=== PATIENT | female | born 1960 | race Caucasian/White ===

== ENCOUNTER → 2024-10-20 | Outpatient (CLI) | payer BC, SELFPAY ==
--- NOTE | 2024-10-20 10:30 | XR_ITS ---
Examination: Breast ultrasound, unilateral, left complete Date and time of exam: October 20, 2024 1031 hours INDICATIONS: Left breast pain beginning 6 months ago, patient states In the left axilla 6 months, ultrasound April 16, 2024 1:00 nodule hyperechoic 19 mm Technique: Real-time medley scale ultrasonographic imaging performed left breast including all 4 quadrants as well as nipple retroareolar and axillary region. Findings: 1:00 oval mass hyperechoic 19 x 12 x 17 mm Left axillary lymph node 14 mm IMPRESSION: BI-RADS Category 3: Probably benign findings Recommend 1 additional 6 month left breast sonogram follow-up to document stability of probably benign lipoma in the 1:00 position left breast
--- NOTE | 2024-10-20 11:00 | XR_ITS ---
Examination: Diagnostic digital mammography, unilateral, left Computer aided detection 3-D breast Tomosynthesis, unilateral Date and time of exam: October 20, 2024 1048 hours INDICATIONS: Mammogram April 16, 2024 16 mm circumscribed nodule upper outer left breast Technique: Nonmagnified MLO, CC views of the left breast have been obtained, reconstructed from 3-D Tomosynthesis images. R2 computer aided detection program utilized for evaluation of suspicious masses and/or abnormal calcifications. 3-D Tomosynthesis images obtained. Findings: Scattered areas of fibroglandular density 2 focal asymmetries upper outer left breast, one corresponding to 1:00 nodule described on left breast sonogram today, lobular margins Impression: BI-RADS category 3: Probably benign findings One additional 6 month left mammogram follow-up strongly recommended to document stability of focal asymmetries described above
== END | disposition home or self-care (01) ==
LOC: CDIM 10:15
PROVIDERS: PCP Family Medicine; Referring Provider Family Medicine; Visit Provider Family Medicine
DX: R92.332 Mammographic heterogeneous density, left breast (principal); N64.89 Other specified disorders of breast; N63.21 Unspecified lump in the left breast, upper outer quadrant
CPT/HCPCS: 76641; 77061; 77065; G0279

== ENCOUNTER → 2024-10-21 | Outpatient (CLI) | payer BC, SELFPAY ==
--- NOTE | 2024-10-21 15:30 | XR_ITS ---
Examination: Thyroid sonography complete TECHNIQUE: By resolution grayscale sonographic images thyroid lobes are carful analysis Exam date and time: October 21, 2024 1547 hours INDICATIONS: Bilateral thyroid nodules on ultrasound thyroid December 26, 2021, mid to upper pole right thyroid nodule 12 mm lower pole left thyroid nodule 6 mm FINDINGS: Right thyroid 3.6 x 1.3 x 1.4 cm Vascular midpole right thyroid nodule 1.3 x 0.8 x 1.0 cm Left thyroid 3.6 x 1.1 x 0.9 cm Lower pole nodule 3 x 2 x 2 mm IMPRESSION: Bilateral thyroid nodules as above
[2024-10-21 16:11] LABS: Misc Send Out* See Sep Rpt
[2024-10-21 16:31] LABS: Basophils # (Auto) 0.1 Thou/mm3 (0.0-0.2); Basophils % (Auto) 1 % (0-2.5); Eosinophils # (Auto) 0.2 Thou/mm3 (0.0-0.5); Eosinophils % (Auto) 2 % (0-10); Hematocrit 45.3 % (36.0-46.0); Hemoglobin 15.3 g/dL (12.0-16.0); Immature Granulocytes % (Auto) 1 % (0-0); Immature Granulocytes Auto 0.06 Thou/mm3 (0.00-0.00); Lymphocytes # (Auto) 1.9 Thou/mm3 (1.0-4.8); Lymphocytes % (Auto) 21 % (10-50); Mean Corpuscular HGB Conc 33.8 g/dl (31.0-37.0); Mean Corpuscular Hemoglobin 29.5 pg (25.0-35.0); Mean Corpuscular Volume 88 fL (80-100); Monocytes # (Auto) 0.7 Thou/mm3 (0.0-0.8); Monocytes % (Auto) 8 % (0-12); Neutrophils % (Auto) 67 % (37-80); Nucleated Red Blood Cell % 0 /100 WBC (0); Platelet Count 246 Thou/mm3 (140-440); RDW Standard Deviation 42.7 fL (36.4-46.3); Red Blood Count 5.18 Miln/mm3 (4.00-5.20)
[2024-10-21 16:59] LABS: T4 (Thyroxine) 8.7 mcg/dL (4.5-10.9)
[2024-10-21 17:00] LABS: Thyroid Stimulating Hormone 3.88 uIU/mL (0.55-4.78)
== END | disposition home or self-care (01) ==
LOC: CDIM 15:24 → COPL 16:00
PROVIDERS: PCP Family Medicine; Referring Provider Family Medicine; Visit Provider Radiology Diagnostic Radiology
DX: E04.1 Nontoxic single thyroid nodule (principal)
CPT/HCPCS: 36415; 76536; 84436; 84443; 85025

== ENCOUNTER → 2024-11-04 | Outpatient (CLI) | payer BC, SELFPAY ==
--- NOTE | 2024-11-04 09:11 | XR_ITS ---
Examination: Esophagram standard Fluoroscopy Upright PA chest single view Upright soft tissue lateral neck single view 24 spot fluoroscopic films of the esophagus Exam date and time: November 04, 2024 0937 hours Massive reflux heartburn difficulty swallowing 1 year TECHNIQUE AND FINDINGS: Upright PA chest mild prominence left ventricle, linear scarring in the right midlung Prominent osteopenia Adequate alignment cervical vertebral bodies Normal epiglottis Primary peristaltic esophageal waves noted Moderate continuous gastroesophageal reflux Fluoroscopy 0.21 minutes 24 spot fluoroscopic films Stricture at the gastroesophageal junction approximate 60% Small sliding esophageal hernia IMPRESSION: Moderate continuous gastroesophageal reflux 60% stricture at the gastroesophageal junction
== END | disposition home or self-care (01) ==
LOC: CDIM 09:04
PROVIDERS: PCP Family Medicine; Referring Provider Family Medicine; Visit Provider Family Medicine
DX: K21.9 Gastro-esophageal reflux disease without esophagitis (principal); K22.2 Esophageal obstruction
CPT/HCPCS: 74220

== ENCOUNTER → 2024-11-26 | Outpatient (CLI) | payer BC, SELFPAY ==
[2024-11-26 16:04] LABS: Thyroid Stimulating Hormone 6.54 uIU/mL (0.55-4.78)
[2024-12-02 06:36] LABS: ANA Pattern NUCLEAR, HOMOGENEOUS; ANA Pattern NUCLEAR, SPECKLED; ANA Screen, IFA POSITIVE (NEGATIVE)
== END | disposition home or self-care (01) ==
LOC: COPL 14:42
PROVIDERS: PCP Family Medicine; Referring Provider Specialist; Visit Provider Specialist
DX: Z01.89 Encounter for other specified special examinations (principal)
CPT/HCPCS: 36415; 84443; 86038

== ENCOUNTER 2024-12-01 08:05 | Day surgery (SDC) | payer BC, SELFPAY ==
--- NOTE | 2024-11-28 06:00 | EKG_ITS ---
[facility] Test Date: 2024-11-28 Pat Name: VARSHA GONZALEZ Department: Room: - Gender: Female Institute Scientist: ABHINAV : 1960 Requested By: Rajan Vieira Order Number: [id number] Reading MD: Rajan Vieira Measurements Intervals [place] Rate: 50 P: 47 [place]: 203 QRS: -17 QRSD: 147 T: 10 QT: 483 QTc: 442 Interpretive Statements SINUS BRADYCARDIA RIGHT BUNDLE BRANCH BLOCK LEFT VENTRICULAR HYPERTROPHY AND ST-T CHANGE POSSIBLE ANTERIOR MYOCARDIAL INFARCTION , OF INDETERMINATE AGE Compared to ECG 03/14/2020 12:08:48 Right bundle-branch block now present Left ventricular hypertrophy now present ST (T wave) deviation now present Myocardial infarct finding now present Sinus rhythm no longer present /store/S0/[id number]/ecg/[id number].pdf
[2024-11-28 13:29] LABS: INR 0.9 (0.9-1.3); Partial Thromboplastin Time 27.9 Seconds (22.0-36.0); Prothrombin Time 10.3 Seconds (9.0-12.2)
[2024-11-28 13:32] LABS: Alanine Aminotransferase 13 U/L (10-49); Albumin, Serum 4.6 gm/dL (3.4-4.8); Albumin/Globulin Ratio 1.8 (1.2-2.2); Alkaline Phosphatase 104 U/L (46-116); Anion Gap 5 (7-16); Aspartate Amino Transferase 16 U/L (0-34); BUN/Creatinine Ratio 8 Ratio (12-20); Bilirubin,Total 0.4 mg/dL (0.3-1.2); Blood Urea Nitrogen 9 mg/dL (9-23); Calcium 9.3 mg/dL (8.3-10.6); Calcium (Corrected) 9.3 mg/dL (8.5-10.1); Carbon Dioxide 29.6 mMol/L (20.0-31.0); Chloride 100 mMol/L (98-107); Creatinine (Component) 1.1 mg/dL (0.6-1.3); Globulin 2.6 gm/dL (2.3-3.5); Glucose 114 mg/dL (74-106); Osmolality,Calculated 269 (275-295); Potassium 3.3 mMol/L (3.4-5.1); Sodium 135 mMol/L (136-145); Total Protein 7.2 gm/dL (5.7-8.2); eGFR 57 See Note
[2024-12-01] VITALS (7 sets, daily range): BP systolic 109–161; BP diastolic 64–89; PULSE 50–69; RESP 13–21; TEMP 36.7–36.8; O2SAT 89–97; BMI 39.3
[2024-12-01] MEDS: SODIUM CHLORIDE 0.9% 500 ML 500 ML 20 ML IV (09:34)
[2024-12-01] MEDS: ALBUTEROL/IPRATROPIUM (Duoneb) RT SOL 3 ML NEBU INH (10:10)
[2024-12-01] MEDS: DEXAMETHASONE SOD PHOS INJ 10 MG/ML VIAL 8 MG IV (10:52)
--- NOTE | 2024-12-01 13:16 | SUR.PHASEII ---
1000: Pt received for recovery. Report from Tami RN and Sadaf [employer] student. Pt in high fowlers coughing intermittently. 02 sats low 89%. Mask in place with 02 @ 6L/min. Other VS stable. Denies pain. 1010: Pt lung sounds continue with coarse rhonchi and mild wheezing. Albuterol nebulizer tx ordered and is being administered at this time. 1025: Pt breathing less labored. Stated she felt much better. Continues with unproductive intermittent cough. 1045: Pt breathing normal for pt. Continues to have mild wheeze left upper chest on inspiration. VS stable. Denies pain. 1052: Received order for Decadron 8mg which was given at this time. Pt cough has subsided. Mild wheeze left upper chest on inspiration remains. 1105: Pt tolerating po fluids with no difficulty swallowing and no n/v. 1127: Pt fully awake, oriented x3. Pt assisted to restroom. Ambulation steady. Pt and stated understanding of discharge instructions. Pt discharged from [facility] in stable condition.
== END 2024-12-01 11:27 | disposition home or self-care (01) ==
PROVIDERS: PCP Family Medicine; Referring Provider Specialist; Visit Provider Specialist
PROC: (CPT 43239; principal; 2024-12-01 12:45)
DX: K29.70 Gastritis, unspecified, without bleeding (principal); K44.9 Diaphragmatic hernia without obstruction or gangrene; K21.00 Gastro-esophageal reflux disease with esophagitis, without bleeding; K22.2 Esophageal obstruction; K31.89 Other diseases of stomach and duodenum; K29.50 Unspecified chronic gastritis without bleeding
CPT/HCPCS: 43248; 43239; 36415; 80053; 85610; 85730; 93005; A4649; A9270; C1769; J1100; J7040

== ENCOUNTER 2024-12-07 16:35 | Emergency (ER) | payer BC, SELFPAY ==
[2024-12-07 16:56] VITALS: BP 169/101; PULSE 62; RESP 24; TEMP 36.6; O2SAT 96
--- NOTE | 2024-12-07 17:02 | XR_ITS ---
Examination: CT abdomen and pelvis without contrast. Coronal 3-D reconstructions. Sagittal 2-D reconstructions. Date and time of exam:December 07, 2024 1710 hrs. Comparison September 03, 2020 Indications: Sudden onset severe left-sided abdominal pain with nausea today CTDI: vol (mGy): 17.3 DLP: (mGycm): 920 Technique: Axial images of the abdomen have been obtained, 3 mm slice thickness Intravenous contrast material has not been administered. Low dose protocols were performed. One or more of the following dose reduction techniques were used; automated exposure control, adjustment of the mA and/or KV according to patient size, use of iterative reconstruction technique. Findings: Liver is mildly irregular in contour Gallbladder is distended with 1 mm gallstone No pancreatic or adrenal mass Significant left renal parenchymal scar formation with 10 mm upper pole left renal calculus No hydronephrosis Fluid distended small bowel loops in the left abdomen for instance axial image 93 Aortic calcification 20 mm fat-containing umbilical hernia No pericecal inflammatory change Colonic diverticulosis, no diverticulitis Contracted urinary bladder Absent uterus No pelvic mass Moderate osteopenia with grade 1 anterolisthesis L5 on S1 with moderate disc narrowing L5-S1 Impression: Suspect primary hepatocellular disease Distended gallbladder with gallstones, recommend gallbladder sonography follow-up Significant left renal parenchymal scar formation, 10 mm upper pole left renal calculus Fluid distended small bowel loops in the left abdomen, consider ileus, enteritis, recommend 3 abdominal series follow-up if early small bowel obstruction is a clinical consideration
--- NOTE | 2024-12-07 17:04 | PD.EDRME ---
Rapid Medical Screening Exam RME Arrival date/time: 12/07/24 16:35 64-year-old female presents to the emergency department today complaints of lower abdominal pain acute Chief Complaint: Abdominal Pain Time Seen by Provider: 12/07/24 16:44
[2024-12-07 17:40] LABS: Basophils # (Auto) 0.1 Thou/mm3 (0.0-0.2); Basophils % (Auto) 0 % (0-2.5); Eosinophils # (Auto) 0.2 Thou/mm3 (0.0-0.5); Eosinophils % (Auto) 2 % (0-10); Hematocrit 44.3 % (36.0-46.0); Hemoglobin 15.2 g/dL (12.0-16.0); Immature Granulocytes % (Auto) 1 % (0-0); Immature Granulocytes Auto 0.07 Thou/mm3 (0.00-0.00); Lymphocytes # (Auto) 2.7 Thou/mm3 (1.0-4.8); Lymphocytes % (Auto) 24 % (10-50); Mean Corpuscular HGB Conc 34.3 g/dl (31.0-37.0); Mean Corpuscular Hemoglobin 29.4 pg (25.0-35.0); Mean Corpuscular Volume 86 fL (80-100); Monocytes # (Auto) 0.9 Thou/mm3 (0.0-0.8); Monocytes % (Auto) 8 % (0-12); Neutrophils # (Auto) 7.5 Thou/mm3 (1.8-7.7); Neutrophils % (Auto) 66 % (37-80); Nucleated Red Blood Cell % 0 /100 WBC (0); Platelet Count 268 Thou/mm3 (140-440); RDW Standard Deviation 41.1 fL (36.4-46.3); Red Blood Count 5.17 Miln/mm3 (4.00-5.20); White Blood Count 11.4 Thou/mm3 (3.6-11.0)
[2024-12-07 17:59] LABS: Collection Type, Urine Clean Catch
[2024-12-07 17:59] LABS: Alanine Aminotransferase 16 U/L (10-49); Albumin, Serum 4.5 gm/dL (3.4-4.8); Albumin/Globulin Ratio 1.6 (1.2-2.2); Alkaline Phosphatase 97 U/L (46-116); Anion Gap 8 (7-16); Aspartate Amino Transferase 19 U/L (0-34); BUN/Creatinine Ratio 5 Ratio (12-20); Bilirubin,Total 0.6 mg/dL (0.3-1.2); Blood Urea Nitrogen 6 mg/dL (9-23); Calcium 9.6 mg/dL (8.3-10.6); Calcium (Corrected) 9.6 mg/dL (8.5-10.1); Carbon Dioxide 28.2 mMol/L (20.0-31.0); Chloride 101 mMol/L (98-107); Creatinine (Component) 1.2 mg/dL (0.6-1.3); Globulin 2.8 gm/dL (2.3-3.5); Glucose 100 mg/dL (74-106); Lipase 26 U/L (12-53); Osmolality,Calculated 271 (275-295); Sodium 137 mMol/L (136-145); Total Protein 7.3 gm/dL (5.7-8.2); eGFR 51 See Note
[2024-12-07 18:05] LABS: Bilirubin,Urine Negative (Negative); Blood,Urine 2+ (Negative); Budding Yeast,Urine Present; Clarity,Urine Turbid (Clear/Hazy); Color,Urine Yellow (Lt Yel-Yel); Culture Indicated,Urine Contaminated; Glucose, Urine Negative (Negative); Hyaline Casts,Urine < 1 /hpf (0-1); Ketones,Urine Negative (Negative); Leukocyte Esterase,Urine Positive (Negative); Nitrite,Urine Negative (Negative); Protein,Urine 1+ (Neg - Trace); RBC,Urine 9 /hpf (0-3); Specific Gravity,Urine 1.013 (1.001-1.035); Squamous Epithelial Cell,Urine 12 /hpf (0-5); WBC,Urine 163 /hpf (0-5)
[2024-12-07 19:03] LABS: HCG Qualitative,Urine Negative
[2024-12-07 19:22] VITALS: BP 113/96; PULSE 53; RESP 17; TEMP 36.6; O2SAT 96
[2024-12-07 19:36] VITALS: BMI 38.9
[2024-12-07] MEDS: HYDROcodone/APAP 5/325 TABLET 1 TAB PO ×2 (19:46→21:37)
[2024-12-07] MEDS: DIAZEPAM 5 MG TABLET 10 MG PO ×2 (19:46→21:37)
--- NOTE | 2024-12-07 20:14 | XR_ITS ---
Examination: Abdomen sonogram, Limited Date and time of exam: December 07, 2024 202 hrs. Indications: Distended gallbladder on CT examination today, upper abdominal pain this week Technique: Real-time medley scale transabdominal sonographic images of the upper abdomen obtained. Findings: Gallbladder sludge 7 mm gallstone Normal gallbladder wall 0.2 cm Common bile duct 0.3 cm Pancreatic head 2.8 cm Liver 14. 8 cm mildly irregular contour Normal hepatopedal portal venous flow Patent IVC Impression: Cholelithiasis, negative for cholecystitis Normal common bile duct
--- NOTE | 2024-12-07 22:08 | EDNOTE_ITS ---
ED Abdominal Pain RME/HPI General Chief Complaint: Abdominal Pain Stated complaint: SUDDEN ONSET SEVERE LEFT SIDED ABD PAIN Time seen by provider: 12/07/24 16:44 Arrival date/time: 12/07/24 16:35 Source: patient Mode of arrival: ambulatory Limitations: no limitations RME / HPI RME / HPI narrative: 12/07/24 16:35 64-year-old female presents to the emergency department today complaints of lower abdominal pain acute. Dr. Lee?s Main ED Evaluation: An 89-year-old female was brought to the emergency department via ambulance with a chief complaint of lumbar spine pain localized to the L2-L3 region, radiating around the right epigastric area. She has a history of shingles and denies any bowel or bladder changes. The patient reports having a muscle nerve stimulator placed from T8 to L1, which she turned off when the pain began; however, the pain has persisted. She denies urinary changes, diarrhea, or constipation. The p ain is exacerbated by movement or turning and is associated with significant muscle tenderness. She denies any other associated symptoms or medical complaints. Related Data Home Medications ?Medication ?Instructions ?Recorded ?Confirmed pregabalin 200 mg capsule (Lyrica) 100 mg PO TID FIBROMYALGIA #0 caps 12/29/13 12/01/24 alprazolam 1 mg tablet 1 mg PO TID 12/01/24 12/01/24 amitriptyline 25 mg tablet 25 mg PO HS 12/01/24 12/01/24 amlodipine 10 mg tablet 10 mg PO QDAY 12/01/24 12/01/24 bupropion HCl 100 mg tablet,12 hr 100 mg PO BID 12/01/24 12/01/24 sustained-release celecoxib 200 mg capsule 200 mg PO BID 12/01/24 12/01/24 levothyroxine 25 mcg tablet 25 mcg PO QDAY 12/01/24 12/01/24 (Synthroid) lisinopril 20 mg tablet 20 mg PO QDAY 12/01/24 12/01/24 Previous Rx's ?Medication ?Instructions ?Recorded pantoprazole 40 mg tablet,delayed 40 mg PO QDAY #14 tabs 12/14/21 release (Protonix) diazepam 10 mg tablet 10 mg PO BID PRN muscle spasm #6 12/07/24 tabs Allergies Allergy/AdvReac Type Severity Reaction Status Date / Time Penicillins Allergy Severe Swelling Verified 12/07/24 16:38 of Lip/Tongue/Throat sulfur dioxide Allergy Unknown Verified 12/07/24 16:38 morphine AdvReac Severe Nausea Verified 12/07/24 16:38 codeine AdvReac Intermediate Nausea Verified 12/07/24 16:38 Review of Systems Review of Systems Systems Reviewed: All systems reviewed, normal except as documented Past Medical History Past Medical History NEUROLOGIC: Positive Neurological Disorders, Cerebrovascular Accident (STATES HAD SEVERAL MINI STROKES IN THE PAST) and Migraine; Negative Seizures CARDIAC: Positive Cardiac Disorders, Cardiac Arrhythmia, Atrial Fibrillation, Heart Murmur and Hypertension; Negative Myocardial Infarction, Angina, Coronary Artery Disease, Atherosclerotic Heart Disease, Peripheral Vascular Disease, Hypercholesterolemia, Aneurysm, Congestive Heart Failure, Congenital Heart Disease, Valvular Heart Disease, Rheumatic Fever, Cardiomyopathy, Edema, Pericarditis, Cellulitis, Deep Vein Thrombosis, Hypotension or Varicose Veins RESPIRATORY: Positive Chronic Obstructive Pulmonary Disease (COPD) and Asthma GASTROINTESTINAL: Positive Gastrointestinal Disorders, Diverticulitis and Gastroesophageal Reflux Disease; Negative Ulcer GENITOURINARY: Negative Genitourinary Disorders or Renal Disease MUSCULOSKELETAL: Positive Musculoskeletal Disorders, Arthritis, Degenerative Disk Disease, Fibromyalgia and Degenerative Joint Disease ENDOCRINE: Positive Endocrine Disorders, Hyperthyroidism (IN THE PAST) and Hypothyroidism; Negative Diabetes Mellitus Type 1, Diabetes Mellitus Type 2, Robel's Syndrome, Donnie's Disease or Adrenal Disease HEMATOLOGIC: Negative Blood Disorders or Sickle Cell Disease PSYCHO/SOCIAL: Positive Depression and Anxiety OTHER HISTORY: Positive Falls; Negative Hospitalization, Autoimmune Disease, Blood Transfusions, Blood Transfusion Reaction, Anesthesia Reactions, MRSA or Cancer Family History FAMILY HISTORY: Positive Family Cardiac Disorders and Family Cancer; Negative Family Neurologic Problems, Family Psychiatric Problems, Family Respiratory Disorders, Family Gastrointestinal Problems, Family Surgery or Family Anesthesia Reaction Surgical History SURGICAL: Positive Tonsillectomy, Abdominal Surgery, Gastric Bypass Surgery (LAP BAND- REMOVED), Joint Replacement (RIGHT SHOULDER, RIGHT KNEE) and Hysterectomy; Negative Pacemaker, Bowel Surgery or Neurologic Surgery Social History SMOKING STATUS: Current every day smoker SECOND HAND EXPOSURE: Yes (spouse) SUBSTANCE USE: marijuana (occasional) ED Exam Narrative Physical exam: GENERAL APPEARANCE: AxOx4, generally well-appearing, no acute distress. HEENT: NC, AT. MMM. EOMI, clear conjunctiva, oropharynx clear. NECK: Supple without lymphadenopathy. No stiffness or restricted ROM. HEART: Normal rate and regular rhythm, normal S1/S1, no m/r/g LUNGS: CTAB, moving air well. No crackles or wheezes are heard. ABDOMEN: Soft, nontender, nondistended with good bowel sounds heard. BACK: Significant muscle tenderness, no obvious deformity. EXTREMITIES: Without cyanosis, clubbing or edema. MUSCULOSKELETAL: FROM of all major joints, no chest tenderness NEUROLOGICAL: Grossly nonfocal. Alert and oriented, moving all 4 extremities. CN not formally tested but appear grossly intact. Observed to ambulate with normal gait. Skin: Warm and dry without any gerri General Limitations: Present no limitations Course Quality Measures none Orders Category Date Time Status CT abdomen pelvis wo con Stat Exams 12/07/24 17:02 Completed US gall bladder Stat Exams 12/07/24 20:14 Completed CBC Stat Lab 12/07/24 17:26 Completed Comprehensive Metabolic Panel Stat Lab 12/07/24 17:26 Completed HCG Qualitative,Urine Stat Lab 12/07/24 17:40 Completed Lipase Stat Lab 12/07/24 17:26 Completed UA, C/S IF [Urinalysis, C/S if Indicated] Stat Lab 12/07/24 17:40 Completed Diazepam [Valium] Med 12/07/24 17:02 Discontinued 10 mg PO X1 ONE Diazepam [Valium] Med 12/07/24 21:15 Discontinued 10 mg PO X1 ONE HYDROcodone*/APAP 5/325 [[place] 5/325] Med 12/07/24 17:04 Discontinued 1 tab PO X1 ONE HYDROcodone*/APAP 5/325 [[place] 5/325] Med 12/07/24 21:15 Discontinued 1 tab PO X1 ONE Vital Signs Vital signs: Vital Signs Temperature 97.8 F 12/07/24 16:56 Pulse Rate 62 12/07/24 16:56 Respiratory Rate 24 H 12/07/24 16:56 Blood Pressure 169/101 H 12/07/24 16:56 Pulse Oximetry (%) 96 12/07/24 16:56 Oxygen Delivery Method Room Air 12/07/24 16:56 Abdominal Pain MDM MDM Narrative MDM Narrative:: Scribe Attestation: I, Paige Manuel am scribing for and in the presence of Dr. Lee. Provider Notation: Although this document has been carefully reviewed, there may still be some phonetic and other typographical errors. These errors are purely grammatical due to imperfections in the software program and should not be const rued in any way to compromise the substance of the patient's medical care during this visit. Patient data External records reviewed:: [facility] previous records Clinical information provided by:: patient Social determinants that could affect healthcare access:: none Patient has the following chronic illnesses:: See PMH How is presenting disease/condition affected by chronic disease/condition?: uneffected by Evaluation data The following diagnostics were reviewed and interpreted by me:: lab results and radiology exam(s) Lab and/or radiology exams considered but not ordered:: n/a Interpretation Summary: Examination: CT abdomen and pelvis without contrast. Date and time of exam:December 07, 2024 1710 hrs. Comparison September 03, 2020 Indications: Sudden onset severe left-sided abdominal pain with nausea today Findings: Liver is mildly irregular in contour Gallbladder is distended with 1 mm gallstone No pancreatic or adrenal mass Significant left renal parenchymal scar formation with 10 mm upper pole left renal calculus No hydronephrosis Fluid distended small bowel loops in the left abdomen for instance axial image 93 Aortic calcification 20 mm fat-containing umbilical hernia No pericecal inflammatory change Colonic diverticulosis, no diverticulitis Contracted urinary bladder Absent uterus No pelvic mass Moderate osteopenia with grade 1 anterolisthesis L5 on S1 with moderate disc narrowing L5-S1 Impression: Suspect primary hepatocellular disease Distended gallbladder with gallstones, recommend gallbladder sonography follow-up Significant left renal parenchymal scar formation, 10 mm upper pole left renal calculus Fluid distended small bowel loops in the left abdomen, consider ileus, enteritis, recommend 3 abdominal series follow-up if early small bowel obstruction is a clinical consideration Dictated By: Bismark Lobo MD Examination: Abdomen sonogram, Limited Date and time of exam: December 07, 2024 2026 hrs. Indications: Distended gallbladder on CT examination today, upper abdominal pain this week Findings: Gallbladder sludge 7 mm gallstone Normal gallbladder wall 0.2 cm Common bile duct 0.3 cm Pancreatic head 2.8 cm Liver 14. 8 cm mildly irregular contour Normal hepatopedal portal venous flow Patent IVC Impression: Cholelithiasis, negative for cholecystitis Normal common bile duct Dictated By: Bismark Lobo MD Medications / Prescriptions Medications or Prescriptions considered but not ordered:: n/a Medication administrations:: Medication Administration History Discontinued Medications Hydrocodone Bitart/Acetaminophen (Hydrocodone/Apap 5/325 Tablet) 1 tab PO X1 ONE Stop: 12/07/24 17:05 Last Admin: 12/07/24 19:46 Dose: 1 tab Documented By: EF Hydrocodone Bitart/Acetaminophen (Hydrocodone/Apap 5/325 Tablet) 1 tab PO X1 ONE Stop: 12/07/24 21:16 Last Admin: 12/07/24 21:37 Dose: 1 tab Documented By: EF Diazepam (Diazepam 5 Mg Tablet) 10 mg PO X1 ONE Stop: 12/07/24 17:03 Last Admin: 12/07/24 19:46 Dose: 10 mg Documented By: EF Diazepam (Diazepam 5 Mg Tablet) 10 mg PO X1 ONE Stop: 12/07/24 21:16 Last Admin: 12/07/24 21:37 Dose: 10 mg Documented By: EF as above Consultations Consultation(s) initiated? (list below): No Diagnosis Differential diagnosis abdominal pain: other (Shingles, Diverticulitis, Renal Colic) Most likely diagnosis given after review of the tests above:: See clinical impression below Admission Indicated Admission indicated?: not indicated Admission Request Was there a request for admission?: No Disposition Plan Disposition Plan: Discharge Discharge Attestation Discharge Attestation: The patient and all family members were given an opportunity to ask questions and understood the discharge instructions. Discharge instructions specifically effects, indications for sooner follow up or return to the emergency department, and the expected course of current diagnosis. Patient condition: Stable Discharge Plan Plan Patient Disposition: HOME (Self Care) Prescriptions/Referrals Prescriptions/Med Rec: New diazepam 10 mg tablet 10 mg PO BID PRN (Reason: muscle spasm) Qty: 6 0RF No Action pregabalin [Lyrica] 200 MG capsule 100 mg PO TID Qty: 0 pantoprazole [Protonix] 40 mg tablet,delayed release (DR/EC) 40 mg PO QDAY Qty: 14 0RF Patient Comments: STATES NOT TAKING AT THIS TIME celecoxib 200 mg capsule 200 mg PO BID alprazolam 1 mg tablet 1 mg PO TID Hold Instructions: Resume on 12/02/24. Patient Comments: take 1 tablet by mouth three times a day lisinopril 20 mg tablet 20 mg PO QDAY bupropion HCl 100 mg tablet sustained-release 12 hr 100 mg PO BID levothyroxine [Synthroid] 25 mcg tablet 25 mcg PO QDAY amitriptyline 25 mg tablet 25 mg PO HS amlodipine 10 mg tablet 10 mg PO QDAY Referrals: Raquel Mills MD [Primary Care Provider] - In 1 week Problem List Clinical Impression: Muscle strain Patient/Caregiver Discharge Instructions Education Materials: ED Muscle Strain, Abdomen Additional Instructions: Follow-up with your primary care doctor in 2 to 3 days if symptoms or not improving. You can return to the emergency department sooner symptoms worsen or if he notes any new, concerning issues. Print Language: Slovak Stand Alone Forms: Helga Award Info., Patient Portal Info Letter
[2024-12-07 23:35] VITALS: BP 132/75; PULSE 50; RESP 16; TEMP 36.6; O2SAT 95
== END 2024-12-07 23:35 | disposition home or self-care (01) ==
PROVIDERS: Nurse Practitioner Primary Care; Emergency Provider Emergency Medicine; PCP Family Medicine
DX: T14.8XXA Other injury of unspecified body region, initial encounter (principal); X58.XXXA Exposure to other specified factors, initial encounter; M54.6 Pain in thoracic spine; R10.13 Epigastric pain
CPT/HCPCS: 36415; 74176; 76705; 80053; 81001; 81025; 83690; 85025; 99284; A9270

== ENCOUNTER → 2024-12-30 | Outpatient (CLI) | payer BC, SELFPAY ==
[2024-12-30 10:51] LABS: Free T4 (Free Thyroxine) 1.19 ng/dL (0.89-1.76); Thyroid Stimulating Hormone 2.51 uIU/mL (0.55-4.78)
== END | disposition home or self-care (01) ==
LOC: COPL 09:31
PROVIDERS: PCP Family Medicine; Referring Provider Family Medicine; Visit Provider Family Medicine
DX: E03.8 Other specified hypothyroidism (principal)
CPT/HCPCS: 36415; 84439; 84443